=== PATIENT | male | born 1960 | race Caucasian/White ===

== ENCOUNTER → 2018-01-09 | Outpatient (CLI) | payer BC, OTHER ==
--- NOTE | 2018-01-09 16:16 | PCVCIMAG ---
APPROVED REPORT Study performed: 01/09/2018 15:06:44 Exam: Stress Echocardiogram Indication: elevated calcium score-168, HLP Patient Location: Echo lab Stress Nurse: Orin Median RN Status: routine Ht: 5 ft 5 in HR: 81 bpm BP: 132/72 mmHg Rhythm: NSR Procedure The patient underwent an Exercise Stress Test using the Tan Protocol. Blood pressure, heart rate, and EKG were monitored. An Echocardiogram was performed by pharmacy intake technician in four stages in quad fashion. At peak stress, four selected images were obtained and placed side by side with resting images for comparison. Stress Test Details Stress Test: Exercise stress testing was performed using a Tan protocol. HR Resting HR: 81 bpmMax Heart Rate (APMHR): 161 bpm Max HR Achieved: 153 bpmTarget HR (85% APMHR): 136 bpm % of APMHR: 95 Recovery HR: 104 bpm HR response to stress: Normal HR response to stress BP Resting BP: 132/72 mmHg Max BP: 180/80 mmHg Recovery BP: 144/86 mmHg ECG Resting ECG: Sinus Rhythm Stress ECG: Sinus Rhythm ST Change: Normal Maximum ST Deviation: 0 mm Arrhythmia: None Recovery ECG: Sinus Rhythm Recovery ST Change: Normal Recovery ST Deviation: 0 mm Recovery Arrhythmia: None Clinical Reason for Termination: Maximal effort Stress Symptoms: leg pain Exercise duration: 7 min sec Highest Stage Achieved: Stage 3: 3.4 mph at 14% grade. Exercise capacity: 10.1 METs Overall Exercise Capacity for Age: Normal Scale: Active Angina Score: None Stress ECG Conclusion Clinical: Non-ischemic ECG: Non-ischemic Hickman Treadmill Score is 7.0 which is Low risk. Pre-Stress Echo The resting Echocardiogram showed normal left ventricular contractility with an estimated Ejection Fraction of about >55%. Normal wall motion in all segments on baseline images. Post-Stress Echo The stress Echocardiogram showed normal left ventricular contractility with an estimated Ejection Fraction of about 65%. Normal augmentation of wall motion in all segments on post stress images. Clinical No clinical or ECG evidence for ischemia. Conclusion Clinical Response: Non-ischemic Exercise Capacity: Average Stress ECG Response: Non-ischemic Stress Echo Images: Non-ischemic Mitral valve prolapse with moderate mitral insufficiency Normal stress echocardiogram with maximal exercise stress. The left ventricle is normal in size and wall thickness in both the rest and stress images. Other Information Study Quality: Adequate <Conclusion> Mitral valve prolapse with moderate mitral insufficiency Normal stress echocardiogram with maximal exercise stress. The left ventricle is normal in size and wall thickness in both the rest and stress images.
== END | disposition home or self-care (01) ==
LOC: PCVCIMAG 15:19
PROVIDERS: ATTEND Family Medicine
DX: I34.0 Nonrheumatic mitral (valve) insufficiency (principal); I34.1 Nonrheumatic mitral (valve) prolapse; I10 Essential (primary) hypertension; E78.5 Hyperlipidemia, unspecified
CPT/HCPCS: 93325; 93351